=== PATIENT | male | born 1960 | race Caucasian/White ===

== ENCOUNTER 2024-09-15 15:40 | Inpatient (IN) | payer BC, SELFPAY ==
[2024-09-15] VITALS (9 sets, daily range): BP systolic 108–120; BP diastolic 74–77; PULSE 103–110; RESP 16–20; TEMP 36.6–38.4; O2SAT 94–96; BMI 27.6
--- NOTE | ~2024-09-15 | CT_ITS ---
EXAMINATION: CT abdomen pelvis w con DATE: 09/15/2024 16:41 INDICATION: Low abdominal pain. TECHNIQUE: Computed tomography (CT) of the abdomen and pelvis was performed with 100 mL Omnipaque 350 intravenous contrast. Automated exposure control and iterative reconstruction technique were employe d. The dose-length product was 563.92 mGy-cm. COMPARISON: None. FINDINGS: The visualized portions of the lung bases demonstrate mild atelectasis. There is mild bronc hiectasis bilaterally. No pleural effusion. The heart size is normal. There is a small pericardial ef fusion. Calcified right hilar lymph nodes are consistent with old granulomatous disease. There are cy sts in the liver measuring up to 16 mm. The spleen, gallbladder, pancreas, adrenal glands, and kidney s are normal. There is a small sliding hiatal hernia. There are scattered diverticula in the colon. T he appendix is ill-defined and dilated with surrounding fat stranding and free gas, consistent with r uptured appendicitis. There is a small volume of ascites in the right paracolic gutter and pelvis. Th ere are no pathologically enlarged lymph nodes. There is severe lumbar spondylosis. IMPRESSION: 1. Ruptured acute appendicitis. 2. Small volume of ascites. 3. Small pericardial effusion. Reviewed, dictated and finalized at location A. [facility]
[2024-09-15 16:26] LABS: Hematocrit 46.7 % (42.0-52.0); Mean Corpuscular HGB Conc 36.4 g/dl (32-36); Mean Corpuscular Hemoglobin 34.1 pg (26-34); Mean Corpuscular Volume 93.6 fl (80-100); Mean Platelet Volume 9.9 fl (7.4-10.4); Platelet Count Result 261 k/mm3 (150-375); Red Blood Count 4.99 M/mm3 (4.6-6.20); White Blood Count 13.1 K/mm3 (4.5-10.0)
[2024-09-15 16:37] LABS: Lactic Acid Reflex 2.7 mmol/L (0.7-2.0)
[2024-09-15 16:40] LABS: Albumin Level 4.7 g/dL (3.5-5.1)
--- NOTE | 2024-09-15 16:42 | ECG_ITS ---
Test Date: 2024-09-15 18:30:36 Measurements Intervals [place] Rate: 101 P: 27 UT: 150 QRS: 17 QRSD: 95 T: 13 QT: 311 QTc: 404 Interpretive Statements SINUS TACHYCARDIA POSSIBLE LEFT ATRIAL ENLARGEMENT INCOMPLETE RIGHT BUNDLE BRANCH BLOCK BORDERLINE T WAVE ABNORMALITY- ANT/INF LEADS BASELINE ARTIFACT- I, II, III, AVR, AVL, V1-V2 BORDERLINE ECG No previous ECG available for comparison Electronically Signed On 09-15-2024 19:16:48 WARDROBE COORDINATOR by Sridhar August D.O.
--- NOTE | 2024-09-15 16:43 | ED_ITS ---
HPI - Abdominal Pain General Chief Complaint: Abdominal Pain <Salud Perez APRN - Last Filed: 09/15/24 16:52> Stated Complaint: abd pain <Salud Perez APRN - Last Filed: 09/15/24 16:52> Time Seen by Provider: 09/15/24 16:25 <Salud Perez FLATLOCK SEWING MACHINE OPERATOR - Last Filed: 09/15/24 16:52> Focused HPI: patient is a 64-year-old male who presents to the ER with upper abdominal pain. He reports the pain has been going on for about 3 days. He also endorses diarrhea but does not feel as though he is passing much gas. The pain has worsened over the last 3 days. Patient denies fevers, urinary symptoms, or back pain. He does endorse frequent belching. Patient denies any recent sick contacts. GENERAL: Well-appearing, well-nourished, and in no acute distress. HEAD: Normocephalic, atraumatic. CHEST: Clear to auscultation. ?No respiratory distress. HEART: Tachycardia, regular rhythm. ? NEURO: ?Alert and oriented x3. Patient screened in triage and initial orders placed.? ?Additional care and di sposition to be based upon?diagnostic testing and treatment. <Salud Perez APRN - Last Filed: 09/15/24 16:52> Focused HPI: Patient is a 64-year-old male who presents to the ER with upper abdominal pain. He reports the pain has been going on for about 3 days. He also endorses diarrhea but does not feel as though he is passing much gas. The pain has worsened over the last 3 days. Patient denies fevers, urinary symptoms, or back pain. He does endorse frequent belching. Patient denies any recent sick contacts. GENERAL: Well-appearing, well-nourished, and in no acute distress. HEAD: Normocephalic, atraumatic. CHEST: Clear to auscultation. ?No respiratory distress. HEART: Tachycardia, regular rhythm. ? NEURO: ?Alert and oriented x3. Patient screened in triage and initial orders placed.? ?Additional care and disposition to be based upon?diagnostic testing and treatment. <Gilda Berg PA-C - Last Filed: 09/15/24 18:10> Source: patient <DEBBIE Christianson Last Filed: 09/15/24 18:10> Mode of arrival: ambulatory <DEBBIE Christianson Last Filed: 09/15/24 18:10> Limitations: no limitations <DEBBIE Christianson Last Filed: 09/15/24 18:10> History of Present Illness HPI narrative: Agree with above HPI. Reports pain is constant. Reported N/V today. Denies fevers. <DEBBIE Christianson Last Filed: 09/15/24 18:10> Related Data Allergies/Adverse Reactions: Allergies Allergy/AdvReac Type Severity Reaction Status Date / Time No Known Allergies Allergy Verified 09/15/24 15:50 <Salud Perez, FLATLOCK SEWING MACHINE OPERATOR - Last Filed: 09/15/24 16:52> Review of Systems Review of Systems: All systems reviewed & are unremarkable except as noted in HPI. <DEBBIE Christianson Last Filed: 09/15/24 18:10> All systems reviewed & are unremarkable except as noted in HPI and below <DEBBIE Christianson Last Filed: 09/15/24 18:10> Exam Narrative: GENERAL: Mildly ill appearing, well-nourished, non-toxic, in no acute distress. HEAD: Normocephalic, atraumatic. RESPIRATORY: Airway patent, respirations nonlabored. Clear to auscultation bilaterally, no rales, rhonchi, wheezing. CARDIOVASCULAR: Tachycardic with regular rhythm without murmurs, rubs, or gallops. ABDOMINAL: Abdomen is somewhat firm, diffusely tender in lower abdomen, worst in RLQ with some rebound tenderness noted. Normoactive BS. MUSCULOSKELETAL: Moves all extremities. No gross deformities. SKIN: Warm, dry, normal color. NEURO: A&O X3. Speech clear. No ataxic movements. PSYCHIATRIC: Appropriate mood and affect. Normal interaction. <DEBBIE Christianson Last Filed: 09/15/24 18:10> Course BAILER OPERATORS SUPERVISOR/PA Physician Supervision For this patient encounter, I reviewed the BAILER OPERATORS SUPERVISOR or PA documentation, treatment plan, and medical decision making and/or I had [id number] time with this patient. I performed all aspects of the MDM as documented. <Danyell Ramos MD - Last Filed: 09/15/24 19:19> Vital Signs Vital signs: Vital Signs Temperature 98.4 F 09/15/24 15:48 Pulse Rate 109 H 09/15/24 15:48 Respiratory Rate 20 09/15/24 15:48 Blood Pressure 108/77 09/15/24 15:48 Pulse Oximetry 96 09/15/24 15:48 Temperature 97.8 F 09/15/24 17:28 Pulse Rate 110 H 09/15/24 17:28 Respiratory Rate 18 09/15/24 17:28 Blood Pressure 111/76 09/15/24 17:28 Pulse Oximetry 96 09/15/24 17:28 <Salud Perez APRN - Last Filed: 09/15/24 16:52> Vital Signs Temperature 98.4 F 09/15/24 15:48 Pulse Rate 109 H 09/15/24 15:48 Respiratory Rate 20 09/15/24 15:48 Blood Pressure 108/77 09/15/24 15:48 Pulse Oximetry 96 09/15/24 15:48 Temperature 97.8 F 09/15/24 17:28 Pulse Rate 110 H 09/15/24 17:28 Respiratory Rate 18 09/15/24 17:28 Blood Pressure 111/76 09/15/24 17:28 Pulse Oximetry 96 09/15/24 17:28 <Gilda Berg PA-C - Last Filed: 09/15/24 18:10> Vital Signs Temperature 98.4 F 09/15/24 15:48 Pulse Rate 109 H 09/15/24 15:48 Respiratory Rate 20 09/15/24 15:48 Blood Pressure 108/77 09/15/24 15:48 Pulse Oximetry 96 09/15/24 15:48 Temperature 97.8 F 09/15/24 17:28 Pulse Rate 110 H 09/15/24 17:28 Respiratory Rate 18 09/15/24 17:28 Blood Pressure 111/76 09/15/24 17:28 Pulse Oximetry 96 09/15/24 17:28 <Danyell Ramos MD - Last Filed: 09/15/24 19:19> MDM - Abdominal Pain MDM Narrative Medical decision making narrative: Patient presented to ED with 3 day history with lower abdominal pain. Patient tachycardic upon arrival. Afebrile here. Abdomen exam is with moderate tenderness in lower abdomen, +rebound tenderness present. CBC with white blood cell count of 13.1. Neutrophil predominance. 4% bandemia. CMP with hyponatremia at 126, chloride low at 91. Fluids ongoing. Minimal anion gap of 13. Lactic acid elevated to 2.7. CT scan of abdomen /pelvis obtained and showing ruptured acute appendicitis. Small volume ascites. Will discuss with surgery. Blood cx obtained and zosyn started in the ED. Patient meeting sepsis criteria. 30 mL/kg fluid bolus ordered. Discussed case with Dr. Newman, accepted patient for admission under his service. Keep NPO. Patient in agreement with plan and need for admission. PRN pain and nausea medications ordered. <Gilda Berg PA-C - Last Filed: 09/15/24 18:10> Differential Diagnosis Differential diagnosis: Likely acute appendicitis, constipation, diverticulitis and pancreatitis <Danyell Ramos MD - Last Filed: 09/15/24 19:19> Medical Records Attestation: I reviewed the patient's medical records. <Gilda Berg PA-C - Last Filed: 09/15/24 18:10> Lab Data Attestation: I reviewed the patient's lab results. <Gilda Berg PA-C - Last Filed: 09/15/24 18:10> Result diagrams: 09/15/24 16:18 09/15/24 16:18 <Salud Perez APRN - Last Filed: 09/15/24 16:52> Labs: Lab Results 09/15/24 09/15/24 09/15/24 Range/Units 16:17 16:18 17:33 WBC 13.1 H (4.5-10.0) K/mm3 RBC 4.99 (4.6-6.20) M/mm3 Hgb 17.0 (14.0-18.0) g/dL Hct 46.7 (42.0-52.0) % MCV 93.6 (80-100) fl MCH 34.1 H (26-34) pg MCHC 36.4 H (32-36) g/dl RDW 12.0 (11.5-14.5) % Plt Count 261 (150-375) k/mm3 MPV 9.9 (7.4-10.4) fl Immature Gran % (Auto) Not Reportable Neut % (Auto) Not Reportable Lymph % (Auto) Not Reportable [place] % (Auto) Not Reportable Eos % (Auto) Not Reportable Baso % (Auto) Not Reportable Lymph # (Auto) Not Reportable [place] # (Auto) Not Reportable Eos # (Auto) Not Reportable Baso # (Auto) Not Reportable Abs Immat Gran (auto) Not Reportable Absolute Neuts (auto) Not Reportable Absolute Nucleated RBC Not Reportable Total Counted 100 Neutrophils % (Manual) 83 H (46-73) % Band Neutrophils % 4 (0-6) % Lymphocytes % (Manual) 6 L (18-44) % Monocytes % (Manual) 7 (3-9) % Eosinophils % (Manual) 0 (0-4) % Basophils % (Manual) 0 (0-1) % Nucleated RBC % Not Reportable Abs Neuts (Manual) 11.39 H (1.3-6.7) K/mm3 Abs Lymphs (Manual) 0.78 L (1.1-4.5) K/mm3 Abs Monocytes (Manual) 0.91 H (0.1-0.90) K/mm3 Absolute Eos (Manual) 0.00 L (0.02-0.50) K/mm3 Abs Basophils (Manual) 0.00 (0.0-0.1) K/mm3 Platelet Estimate Adequate (Adequate) Large Platelets Present Schistocytes None seen PT 16.1 H (11.1-14.7) Seconds INR 1.2 APTT 29.6 (22.3-36.8) Seconds Sodium 126 L (137-145) mmol/L Potassium 4.1 (3.4-5.0) mmol/L Chloride 91 L (98-107) mmol/L Carbon Dioxide 22 (22-30) mmol/L Anion Gap 13 H (4-12) mmol/L BUN 21 H (9-20) mg/dL Creatinine 1.10 (0.7-1.3) mg/dL Estim Creat Clear Calc 56 ml/min Estimated GFR > 60 (59 - ) Glucose 138 H (65-110) mg/dL Lactic Acid 2.7 H (0.7-2.0) mmol/L Calcium 10.3 H (8.4-10.2) mg/dL Total Bilirubin 2.4 H (0.2-1.3) mg/dL AST 23 (17-59) U/L ALT 18 (6-50) U/L Alkaline Phosphatase 69 (38-126) U/L Troponin I < 0.012 (0.000-0.034) ng/mL Total Protein 8.0 (6.3-8.2) g/dL Albumin 4.7 (3.5-5.1) g/dL Lipase 23 (23-300) U/L Urine Color Yellow (Yellow) Urine Appearance Clear (Clear) Urine pH 5.5 (5.0-9.0) Ur Specific [place] > 1.045 H (1.001-1.035) Urine Protein 2+ H (Negative) mg/dL Urine Glucose (UA) Negative (Negative) mg/dL Urine Ketones Negative (Negative) mg/dL Ur Blood (Man) 2+ H (Negative) Urine Nitrate Negative (Negative) Urine Bilirubin Negative (Negative) Urine Urobilinogen 1.0 (<2.0) mg/dL Add Ur Microanalysis Reviewed Leukocyte Esterase Rfl Negative (Negative) ROLF/UL Urine RBC 6-10 H (0-2) /hpf Urine WBC 0-5 (0-3) /hpf Ur Squamous Epith Cells None seen (Few) /hpf Urine Bacteria None seen /hpf Urine Casts 0-2 <Salud Perez, FLATLOCK SEWING MACHINE OPERATOR - Last Filed: 09/15/24 16:52> Lab Results 09/15/24 09/15/24 09/15/24 Range/Units 16:17 16:18 17:33 WBC 13.1 H (4.5-10.0) K/mm3 RBC 4.99 (4.6-6.20) M/mm3 Hgb 17.0 (14.0-18.0) g/dL Hct 46.7 (42.0-52.0) % MCV 93.6 (80-100) fl MCH 34.1 H (26-34) pg MCHC 36.4 H (32-36) g/dl RDW 12.0 (11.5-14.5) % Plt Count 261 (150-375) k/mm3 MPV 9.9 (7.4-10.4) fl Immature Gran % (Auto) Not Reportable Neut % (Auto) Not Reportable Lymph % (Auto) Not Reportable [place] % (Auto) Not Reportable Eos % (Auto) Not Reportable Baso % (Auto) Not Reportable Lymph # (Auto) Not Reportable [place] # (Auto) Not Reportable Eos # (Auto) Not Reportable Baso # (Auto) Not Reportable Abs Immat Gran (auto) Not Reportable Absolute Neuts (auto) Not Reportable Absolute Nucleated RBC Not Reportable Total Counted 100 Neutrophils % (Manual) 83 H (46-73) % Band Neutrophils % 4 (0-6) % Lymphocytes % (Manual) 6 L (18-44) % Monocytes % (Manual) 7 (3-9) % Eosinophils % (Manual) 0 (0-4) % Basophils % (Manual) 0 (0-1) % Nucleated RBC % Not Reportable Abs Neuts (Manual) 11.39 H (1.3-6.7) K/mm3 Abs Lymphs (Manual) 0.78 L (1.1-4.5) K/mm3 Abs Monocytes (Manual) 0.91 H (0.1-0.90) K/mm3 Absolute Eos (Manual) 0.00 L (0.02-0.50) K/mm3 Abs Basophils (Manual) 0.00 (0.0-0.1) K/mm3 Platelet Estimate Adequate (Adequate) Large Platelets Present Schistocytes None seen PT 16.1 H (11.1-14.7) Seconds INR 1.2 APTT 29.6 (22.3-36.8) Seconds Sodium 126 L (137-145) mmol/L Potassium 4.1 (3.4-5.0) mmol/L Chloride 91 L (98-107) mmol/L Carbon Dioxide 22 (22-30) mmol/L Anion Gap 13 H (4-12) mmol/L BUN 21 H (9-20) mg/dL Creatinine 1.10 (0.7-1.3) mg/dL Estim Creat Clear Calc 56 ml/min Estimated GFR > 60 (59 - ) Glucose 138 H (65-110) mg/dL Lactic Acid 2.7 H (0.7-2.0) mmol/L Calcium 10.3 H (8.4-10.2) mg/dL Total Bilirubin 2.4 H (0.2-1.3) mg/dL AST 23 (17-59) U/L ALT 18 (6-50) U/L Alkaline Phosphatase 69 (38-126) U/L Troponin I < 0.012 (0.000-0.034) ng/mL Total Protein 8.0 (6.3-8.2) g/dL Albumin 4.7 (3.5-5.1) g/dL Lipase 23 (23-300) U/L Urine Color Yellow (Yellow) Urine Appearance Clear (Clear) Urine pH 5.5 (5.0-9.0) Ur Specific [place] > 1.045 H (1.001-1.035) Urine Protein 2+ H (Negative) mg/dL Urine Glucose (UA) Negative (Negative) mg/dL Urine Ketones Negative (Negative) mg/dL Ur Blood (Man) 2+ H (Negative) Urine Nitrate Negative (Negative) Urine Bilirubin Negative (Negative) Urine Urobilinogen 1.0 (<2.0) mg/dL Add Ur Microanalysis Reviewed Leukocyte Esterase Rfl Negative (Negative) ROLF/UL Urine RBC 6-10 H (0-2) /hpf Urine WBC 0-5 (0-3) /hpf Ur Squamous Epith Cells None seen (Few) /hpf Urine Bacteria None seen /hpf Urine Casts 0-2 <Gilda Berg PA-C - Last Filed: 09/15/24 18:10> Lab Results 09/15/24 09/15/24 09/15/24 Range/Units 16:17 16:18 17:33 WBC 13.1 H (4.5-10.0) K/mm3 RBC 4.99 (4.6-6.20) M/mm3 Hgb 17.0 (14.0-18.0) g/dL Hct 46.7 (42.0-52.0) % MCV 93.6 (80-100) fl MCH 34.1 H (26-34) pg MCHC 36.4 H (32-36) g/dl RDW 12.0 (11.5-14.5) % Plt Count 261 (150-375) k/mm3 MPV 9.9 (7.4-10.4) fl Immature Gran % (Auto) Not Reportable Neut % (Auto) Not Reportable Lymph % (Auto) Not Reportable [place] % (Auto) Not Reportable Eos % (Auto) Not Reportable Baso % (Auto) Not Reportable Lymph # (Auto) Not Reportable [place] # (Auto) Not Reportable Eos # (Auto) Not Reportable Baso # (Auto) Not Reportable Abs Immat Gran (auto) Not Reportable Absolute Neuts (auto) Not Reportable Absolute Nucleated RBC Not Reportable Total Counted 100 Neutrophils % (Manual) 83 H (46-73) % Band Neutrophils % 4 (0-6) % Lymphocytes % (Manual) 6 L (18-44) % Monocytes % (Manual) 7 (3-9) % Eosinophils % (Manual) 0 (0-4) % Basophils % (Manual) 0 (0-1) % Nucleated RBC % Not Reportable Abs Neuts (Manual) 11.39 H (1.3-6.7) K/mm3 Abs Lymphs (Manual) 0.78 L (1.1-4.5) K/mm3 Abs Monocytes (Manual) 0.91 H (0.1-0.90) K/mm3 Absolute Eos (Manual) 0.00 L (0.02-0.50) K/mm3 Abs Basophils (Manual) 0.00 (0.0-0.1) K/mm3 Platelet Estimate Adequate (Adequate) Large Platelets Present Schistocytes None seen PT 16.1 H (11.1-14.7) Seconds INR 1.2 APTT 29.6 (22.3-36.8) Seconds Sodium 126 L (137-145) mmol/L Potassium 4.1 (3.4-5.0) mmol/L Chloride 91 L (98-107) mmol/L Carbon Dioxide 22 (22-30) mmol/L Anion Gap 13 H (4-12) mmol/L BUN 21 H (9-20) mg/dL Creatinine 1.10 (0.7-1.3) mg/dL Estim Creat Clear Calc 56 ml/min Estimated GFR > 60 (59 - ) Glucose 138 H (65-110) mg/dL Lactic Acid 2.7 H (0.7-2.0) mmol/L Calcium 10.3 H (8.4-10.2) mg/dL Total Bilirubin 2.4 H (0.2-1.3) mg/dL AST 23 (17-59) U/L ALT 18 (6-50) U/L Alkaline Phosphatase 69 (38-126) U/L Troponin I < 0.012 (0.000-0.034) ng/mL Total Protein 8.0 (6.3-8.2) g/dL Albumin 4.7 (3.5-5.1) g/dL Lipase 23 (23-300) U/L Urine Color Yellow (Yellow) Urine Appearance Clear (Clear) Urine pH 5.5 (5.0-9.0) Ur Specific [place] > 1.045 H (1.001-1.035) Urine Protein 2+ H (Negative) mg/dL Urine Glucose (UA) Negative (Negative) mg/dL Urine Ketones Negative (Negative) mg/dL Ur Blood (Man) 2+ H (Negative) Urine Nitrate Negative (Negative) Urine Bilirubin Negative (Negative) Urine Urobilinogen 1.0 (<2.0) mg/dL Add Ur Microanalysis Reviewed Leukocyte Esterase Rfl Negative (Negative) ROLF/UL Urine RBC 6-10 H (0-2) /hpf Urine WBC 0-5 (0-3) /hpf Ur Squamous Epith Cells None seen (Few) /hpf Urine Bacteria None seen /hpf Urine Casts 0-2 <Danyell Ramos MD - Last Filed: 09/15/24 19:19> Imaging Data Attestation: I personally reviewed and interpreted this imaging study as follows: <Gilda Berg PA-C - Last Filed: 09/15/24 18:10> Radiologist's impression: ITS Impressions Abdomen/Pelvis CT 09/15/24 16:44 IMPRESSION: 1. Ruptured acute appendicitis. 2. Small volume of ascites. 3. Small pericardial effusion. <Salud Perez APRN - Last Filed: 09/15/24 16:52> ITS Impressions Abdomen/Pelvis CT 09/15/24 16:44 IMPRESSION: 1. Ruptured acute appendicitis. 2. Small volume of ascites. 3. Small pericardial effusion. <Gilda Berg PA-C - Last Filed: 09/15/24 18:10> ITS Impressions Abdomen/Pelvis CT 09/15/24 16:44 IMPRESSION: 1. Ruptured acute appendicitis. 2. Small volume of ascites. 3. Small pericardial effusion. <Danyell Ramos MD - Last Filed: 09/15/24 19:19> Critical Care Time Critical Care Time Critical Care Time: Yes <Danyell Ramos MD - Last Filed: 09/15/24 19:19> Total Critical Care Time: 32 <Danyell Ramos MD - Last Filed: 09/15/24 19:19> Discharge Plan Discharge Clinical Impression: Acute appendicitis with rupture, Hyponatremia, Lactic acidosis Sepsis Qualifiers: Sepsis type: sepsis due to unspecified organism Sepsis acute organ dysfunction status: unspecified Qualified Code(s): A41.9 - Sepsis, unspecified organism Abdominal ascites Qualifiers: Ascites type: other type Qualified Code(s): R18.8 - Other ascites <Salud Perez APRN - Last Filed: 09/15/24 16:52> Patient Disposition: Still a Patient <Salud Perez APRN - Last Filed: 09/15/24 16:52> Condition: Serious <Salud Perez APRN - Last Filed: 09/15/24 16:52>
[2024-09-15 16:47] LABS: Alanine Aminotransferase 18 U/L (6-50); Alkaline Phosphatase 69 U/L (38-126); Anion Gap 13 mmol/L (4-12); Aspartate Amino Transferase 23 U/L (17-59); Bilirubin,Total 2.4 mg/dL (0.2-1.3); Blood Urea Nitrogen 21 mg/dL (9-20); Calcium 10.3 mg/dL (8.4-10.2); Carbon Dioxide 22 mmol/L (22-30); Chloride 91 mmol/L (98-107); Estimated CRCL calculation 56 ml/min; Estimated Glomerular Filt Rate > 60; Glucose 138 mg/dL (65-110); Potassium 4.1 mmol/L (3.4-5.0); Sodium 126 mmol/L (137-145)
[2024-09-15 16:55] LABS: Band Neutrophils Percent 4 % (0-6); Basophils Percent Manual 0 % (0-1); Eosinophils Percent Manual 0 % (0-4); Large Platelets Present; Lymphocytes Absolute Manual 0.78 K/mm3 (1.1-4.5); Lymphocytes Percent Manual 6 % (18-44); Monocytes Absolute Manual 0.91 K/mm3 (0.1-0.90); Monocytes Percent Manual 7 % (3-9); Neutrophils Absolute Manual 11.39 K/mm3 (1.3-6.7); Neutrophils Percent Manual 83 % (46-73); Platelet Estimate Adequate (Adequate); Total Cells Counted 100
[2024-09-15 16:56] LABS: Schistocytes None Seen
[2024-09-15 17:09] LABS: Lipase 23 U/L (23-300)
[2024-09-15 17:30] LABS: Troponin I < 0.012 ng/mL (0.000-0.034)
[2024-09-15 17:46] LABS: INR 1.2; Prothrombin Time 16.1 Seconds (11.1-14.7)
[2024-09-15 17:47] LABS: Partial Thromboplastin Time 29.6 Seconds (22.3-36.8)
[2024-09-15] MEDS: ONDANSETRON INJ 4 MG/2 ML VIAL IV PUSH (18:00)
[2024-09-15] MEDS: MORPHINE SULFATE (*CRX) 4 MG/ML INJ IV PUSH (18:01)
[2024-09-15] MEDS: PIPERACILLN/TAZ 3.375GM/NS50ML 3.375 GM/50 ML BAG IVPB ×2 (18:02→23:35)
[2024-09-15] MEDS: SODIUM CHLORIDE 0.9% IV 1,000 ML 999 ML IV CONT ×2 (18:10→18:11)
[2024-09-15 18:11] LABS: Add Urine Microscopic? YES; Appearance Urine Clear (Clear); Bacteria Urine None Seen /hpf; Bilirubin Urine Negative (Negative); Blood Urine 2+ (Negative); Color Urine Yellow (Yellow); Glucose Urine UA Negative (Negative); Ketones Urine Negative (Negative); Leukocyte Esterase Ur Negative LEU/UL (Negative); Need Manual Microscopic Reviewed; Nitrate Urine Negative (Negative); Non Pathogenic Casts 0-2; Protein Urine 2+ mg/dL (Negative); Specific Grav Ur > 1.045 (1.001-1.035); Squamous Epithelial Cell Urine None Seen /hpf (Few); WBC Urine 0-5 /hpf (0-3); pH Urine 5.5 (5.0-9.0)
[2024-09-15 19:23] LABS: Reflex Lactic Acid Yes or No Add Lactic
--- NOTE | 2024-09-15 19:54 | ADMGEN ---
This patient, Gonzalo Jordan, was admitted to [facility] Surg Room 321-. Patient/family oriented to hospital policies and general routines including ID bracelet, bed and alarms, visiting hours, pain management, procedures, bathroom and other care routines, personal items, smoking policy, room service/diet, and visiting hours. Information on how to activate the Rapid Response Team has been discussed. Patient/Family are encouraged to report perceived risks to care and to ask questions if they do not understand what they are told or what they should do.
[2024-09-15] MEDS: SODIUM CHLORIDE 0.9% IV 1,000 ML 100 ML IV CONT (20:20)
[2024-09-15] MEDS: HYDROmorphone HCL INJ (*CRX) 1 MG/ML SYR IV PUSH (20:21)
[2024-09-15] MEDS: SODIUM CHLORIDE 0.9% IV 400 ML 999 ML IV CONT (20:21)
[2024-09-15 21:06] LABS: Lactic Acid 1.1 mmol/L (0.7-2.0)
[2024-09-15] MEDS: ACETAMINOPHEN 650 MG SUPPOSITORY RECTAL (22:31)
[2024-09-16] VITALS (16 sets, daily range): BP systolic 103–126; BP diastolic 67–84; PULSE 78–120; RESP 18–24; TEMP 35.9–37.6; O2SAT 91–98
[2024-09-16] MEDS: HYDROmorphone HCL INJ (*CRX) 1 MG/ML SYR IV PUSH (04:01)
[2024-09-16] MEDS: SODIUM CHLORIDE 0.9% IV 1,000 ML 100 ML IV CONT (04:01)
[2024-09-16] MEDS: PIPERACILLN/TAZ 3.375GM/NS50ML 3.375 GM/50 ML BAG IVPB ×4 (05:37→23:25)
--- NOTE | 2024-09-16 08:13 | P.HP_ITS ---
H&P: HPI History of Present Illness Date/Time: 09/16/24 08:13 Chief Complaint: Lower abdominal pain Narrative: This is a 64-year-old man who presented to the emergency department last night with lower abdominal pain that started about 4 days prior. He states that he was having some vague abdominal pains 4 days ago but then 3 days ago pain became more localized to the lower abdomen. Pain was progressively worsening and he also experienced a couple episodes of vomiting. Pain was severe yesterday so he decided to come into the emergency department. He was not noticing any fevers at home but about 5 days ago he did experience night sweats. He has never had any symptoms like this in the past. He does have a family history of colon cancer in his mother but has had a colonoscopy about 14 years ago and also had Cologuard test recently which were negative. Review of Systems Review of Systems: All systems reviewed & are unremarkable except as noted in HPI and below Eyes: Eyes: Denies change in vision ENT: Denies hearing loss, Denies neck pain and Denies sore throat Cardiovascular: Cardiovascular: Denies chest pain and Denies dyspnea Respiratory: Respiratory: Denies cough, Denies dyspnea and Denies wheezing Gastrointestinal: Gastrointestinal: Reports as per HPI Genitourinary: Genitourinary: Denies hematuria and Denies dysuria Musculoskeletal: Musculoskeletal: Denies arthralgias, Denies joint swelling and Denies neck pain Allergic/Immunologic: Allergic/Immunologic: Denies wheezing [facility] Surgical History Surgical History (Updated 09/16/24 @ 08:16 by Varinder Newman DO) Hx of repair of left rotator cuff Family History Family History (Updated 09/15/24 @ 19:57 by Dalila oPlanco RN) Father Chronic obstructive pulmonary disease Mother Colon cancer Social History Social History Smoking status: Never smoker Alcohol intake: current Drinks per week: 6 Substance use: never Do You Feel Safe in your Home?: Yes Lack of Transportation: No Lack of Food: Never True Current Housing: I Have Housing Concerned About Future Housing: No Difficulty Paying Gas/Electric Bills: No Difficulty Paying for Meds: No Currently Unemployed: No Education: Associate Degree Difficulty w/ Childcare or Family Care: No Spiritual care concerns: No Meds Home Medications and Allergies Home Medications Medication Instructions Recorded Confirmed Type No Home Medications 09/15/24 09/15/24 History Allergies Allergy/AdvReac Type Severity Reaction Status Date / Time No Known Allergies Allergy Verified 09/15/24 15:50 Vital Signs Vital Signs - 24 hr 09/15/24 15:48 09/15/24 17:28 09/15/24 19:31 Temperature 98.4 F 97.8 F Pulse Rate 109 H 110 H 103 H Respiratory Rate 20 18 16 Blood Pressure 108/77 111/76 120/74 Pulse Oximetry 96 96 96 Oxygen Delivery 09/15/24 21:30 09/15/24 22:29 09/15/24 22:31 Temperature 99.7 F H 100.4 F H 100.4 F H Pulse Rate Respiratory Rate Blood Pressure Pulse Oximetry Oxygen Delivery 09/15/24 20:05 09/15/24 20:45 09/15/24 23:31 Temperature 101.2 F H 100.4 F H 99.7 F H Pulse Rate 105 H Respiratory Rate 16 Blood Pressure 118/75 Pulse Oximetry 94 Oxygen Delivery 09/15/24 20:00 09/16/24 00:00 09/16/24 04:00 Temperature 99.6 F Pulse Rate 94 Respiratory Rate Blood Pressure Pulse Oximetry Oxygen Delivery Room Air 09/16/24 04:00 09/16/24 05:00 Temperature 97.9 F Pulse Rate 98 97 Respiratory Rate 20 Blood Pressure 106/72 Pulse Oximetry 93 Oxygen Delivery Exam Const: General: alert; No acute distress Orientation/consciousness: patient oriented x3 Limitations: no limitations HENMT: Head: normocephalic and atraumatic Ears: hearing grossly normal bilaterally Face/Nose/Sinus: Normal external nose present and Normal nares present Mouth: Yes Normal oral and palatal mucosa present and Yes moist mucous membranes Eyes: General: appearance normal, both eyes and all related structures Conjunctivae: conjunctivae normal Sclera: sclerae normal Pupils: Equal, round and reactive pupils present EOM: EOMs intact bilaterally Neck: Neck: normal visual inspection, full ROM, no lymphadenopathy, supple and no JVD Lymphatic: no lymphadenopathy noted Chest: Chest palpation & inspection: normal inspection of the chest Resp: Effort & Inspection: normal respiratory effort and able to speak in complete sentences Auscultation: clear to auscultation bilaterally Percussion: percussion normal Cardio: Jugular venous distension: no JVD Rate: regular rate Rhythm: regular rhythm Heart sounds: S1 normal heart sound present and S2 normal heart sound present Peripheral pulses: Peripheral pulses 2+ throughout GI: Inspection: normal to inspection and non-distended GI Palp: Yes Tenderness to palpation present (GI) (Tender diffusely but more significant in right lower quadrant), Yes Guarding due to palpation present (GI) (Right lower quadrant) and No Rebound tenderness present Auscultation: normal bowel sounds : General: Yes no CVA tenderness Back/Spine/Pelvis: Back: no CVA tenderness Skin: General skin exam: normal color and dry skin Neuro: General: patient oriented x3, gait normal, moves all extremities, no focal motor deficits and CN's II-XI intact bilaterally Cranial nerves: Yes Equal, round and reactive pupils present Speech: normal speech Extrem: General: normal to inspection and capillary refill normal H&P: Results Labs Labs: Short CBC 09/15/24 Range/Units 16:18 WBC 13.1 H (4.5-10.0) K/mm3 Hgb 17.0 (14.0-18.0) g/dL Hct 46.7 (42.0-52.0) % Plt Count 261 (150-375) k/mm3 BMP 09/15/24 16:18 Sodium 126 L Potassium 4.1 Chloride 91 L Carbon Dioxide 22 BUN 21 H Creatinine 1.10 Glucose 138 H Calcium 10.3 H Cardiac Enzymes 09/15/24 Range/Units 16:17 Troponin I < 0.012 (0.000-0.034) ng/mL Liver Function 09/15/24 Range/Units 16:18 Total Bilirubin 2.4 H (0.2-1.3) mg/dL AST 23 (17-59) U/L ALT 18 (6-50) U/L Alkaline Phosphatase 69 (38-126) U/L Albumin 4.7 (3.5-5.1) g/dL Urine 09/15/24 Range/Units 17:33 Urine Color Yellow (Yellow) Urine Appearance Clear (Clear) Urine pH 5.5 (5.0-9.0) Ur Specific [place] > 1.045 H (1.001-1.035) Urine Protein 2+ H (Negative) mg/dL Urine Glucose (UA) Negative (Negative) mg/dL Imaging CT scan - abdomen: Radiologist's impression: ITS Impressions Abdomen/Pelvis CT 09/15/24 16:44 IMPRESSION: 1. Ruptured acute appendicitis. 2. Small volume of ascites. 3. Small pericardial effusion. Assessment and Plan Assessment and plan (1) Acute appendicitis with rupture: Code(s): K35.32 - Acute appendicitis with perforation, localized peritonitis, and gangrene, without abscess Status: Acute Assessment and Plan: * I reviewed the CT and discussed the findings with the patient. He has evidence of perforated appendicitis and has been started on broad-spectrum IV antibiotics. He was febrile on presentation yesterday but fevers have now resolved since starting antibiotics. I discussed that his appendix already appears ruptured and continued medical treatment with antibiotics is a reasonable option for treatment. I discussed that surgery is also an option, but there are still chances of continued intra-abdominal infection despite surgery. Patient states that he is in severe pain and cannot even get out of bed without experiencing worsening pain and would therefore like to proceed with surgery. I have recommended laparoscopic appendectomy, possible open. I discussed risks of more difficult surgery when the appendix is already ruptur ed and it has been several days. I also discussed chances of conversion to open surgery and other continued risks of infection even postoperatively. Patient voiced his understanding. Will plan for surgery today. Will repeat labs this morning and continue IV fluid resuscitation. (2) Sepsis: Qualifiers: Sepsis acute organ dysfunction status: unspecified Sepsis type: sepsis due to unspecified organism Qualified Code(s): A41.9 - Sepsis, unspecified organism Code(s): A41.9 - Sepsis, unspecified organism Status: Acute (3) Hyponatremia: Code(s): E87.1 - Hypo-osmolality and hyponatremia Status: Acute Assessment and Plan: * Low-sodium and ED likely related to current infection and volume status. Will repeat labs this morning.
[2024-09-16] MEDS: IBUPROFEN IV 800 MG/200 ML 800 MG/200 ML BAG 400 MG IVPB (08:21)
[2024-09-16 08:45] LABS: Hematocrit 39.3 % (42.0-52.0); Hemoglobin 14.1 g/dL (14.0-18.0); Mean Corpuscular HGB Conc 35.9 g/dl (32-36); Mean Corpuscular Hemoglobin 34.1 pg (26-34); Mean Corpuscular Volume 94.9 fl (80-100); Mean Platelet Volume 9.7 fl (7.4-10.4); Platelet Count Result 159 k/mm3 (150-375); Red Blood Count 4.14 M/mm3 (4.6-6.20); White Blood Count 10.3 K/mm3 (4.5-10.0)
[2024-09-16 08:57] LABS: Alanine Aminotransferase 15 U/L (6-50); Albumin Level 3.4 g/dL (3.5-5.1); Alkaline Phosphatase 53 U/L (38-126); Anion Gap 7 mmol/L (4-12); Aspartate Amino Transferase 20 U/L (17-59); Blood Urea Nitrogen 21 mg/dL (9-20); Calcium 9.3 mg/dL (8.4-10.2); Carbon Dioxide 22 mmol/L (22-30); Chloride 101 mmol/L (98-107); Estimated CRCL calculation 68 ml/min; Estimated Glomerular Filt Rate > 60; Glucose 97 mg/dL (65-110); Sodium 130 mmol/L (137-145)
--- NOTE | 2024-09-16 13:16 | PC.NURSE ---
To OR per [ ], IV [ ]. Report given to [LÁZARO].
--- NOTE | 2024-09-16 14:05 | WPDHPUPDATE1 ---
History and Physical Update Update Date/Time: 09/16/24 14:05 History and Physical has been reviewed, including an updated exam of the patient. There are NO changes in the patient's condition. Risks, benefits, and alternatives have been discussed and questions answered. Patient agrees to proceed with procedure.
--- NOTE | 2024-09-16 14:10 | P.PNAN_ITS ---
Anes - Initial Pre Proc Eval Procedure: Operation Date: 09/16/24 15:30 Proposed Procedures p Laparoscopic Appendectomy, Possible Open - Varinder Newman DO Date/Time: 09/16/24 14:10 Surgeon: Varinder Newman DO Pre Op Diagnosis: Ruptured Acute Appendicitis Patient Data Age: 64 Gender: M Height: 1.7 m Weight: 79.9 kg Last Vital Signs Temp 97.9 F 09/16/24 05:00 Pulse 87 09/16/24 12:00 Resp 20 09/16/24 05:00 BP 106/72 09/16/24 05:00 Pulse Ox 93 09/16/24 05:00 O2 Del Method Room Air 09/15/24 20:00 Allergies Allergy/AdvReac Type Severity Reaction Status Date / Time No Known Allergies Allergy Verified 09/15/24 15:50 Home Medications Medication Instructions Recorded Confirmed Type No Home Medications 09/15/24 09/15/24 History Laboratory Tests 09/15/24 09/15/24 09/15/24 16:17 16:18 17:33 WBC 13.1 H K/mm3 (4.5-10.0) RBC 4.99 M/mm3 (4.6-6.20) Hgb 17.0 g/dL (14.0-18.0) Hct 46.7 % (42.0-52.0) MCV 93.6 fl (80-100) MCH 34.1 H pg (26-34) MCHC 36.4 H g/dl (32-36) RDW 12.0 % (11.5-14.5) Plt Count 261 k/mm3 (150-375) MPV 9.9 fl (7.4-10.4) Immature Gran % (Auto) Not Reportable Neut % (Auto) Not Reportable Lymph % (Auto) Not Reportable [place] % (Auto) Not Reportable Eos % (Auto) Not Reportable Baso % (Auto) Not Reportable Lymph # (Auto) Not Reportable [place] # (Auto) Not Reportable Eos # (Auto) Not Reportable Baso # (Auto) Not Reportable Abs Immat Gran (auto) Not Reportable Absolute Neuts (auto) Not Reportable Absolute Nucleated RBC Not Reportable Total Counted 100 Neutrophils % (Manual) 83 H % (46-73) Band Neutrophils % 4 % (0-6) Lymphocytes % (Manual) 6 L % (18-44) Monocytes % (Manual) 7 % (3-9) Eosinophils % (Manual) 0 % (0-4) Basophils % (Manual) 0 % (0-1) Nucleated RBC % Not Reportable Abs Neuts (Manual) 11.39 H K/mm3 (1.3-6.7) Abs Lymphs (Manual) 0.78 L K/mm3 (1.1-4.5) Abs Monocytes (Manual) 0.91 H K/mm3 (0.1-0.90) Absolute Eos (Manual) 0.00 L K/mm3 (0.02-0.50) Abs Basophils (Manual) 0.00 K/mm3 (0.0-0.1) Platelet Estimate Adequate (Adequate) Large Platelets Present Schistocytes None seen PT 16.1 H Seconds (11.1-14.7) INR 1.2 APTT 29.6 Seconds (22.3-36.8) Sodium 126 L mmol/L (137-145) Potassium 4.1 mmol/L (3.4-5.0) Chloride 91 L mmol/L (98-107) Carbon Dioxide 22 mmol/L (22-30) Anion Gap 13 H mmol/L (4-12) BUN 21 H mg/dL (9-20) Creatinine 1.10 mg/dL (0.7-1.3) Estim Creat Clear Calc 56 ml/min Estimated GFR > 60 (59 - ) Glucose 138 H mg/dL (65-110) Lactic Acid 2.7 H mmol/L (0.7-2.0) Calcium 10.3 H mg/dL (8.4-10.2) Total Bilirubin 2.4 H mg/dL (0.2-1.3) AST 23 U/L (17-59) ALT 18 U/L (6-50) Alkaline Phosphatase 69 U/L (38-126) Troponin I < 0.012 ng/mL (0.000-0.034) Total Protein 8.0 g/dL (6.3-8.2) Albumin 4.7 g/dL (3.5-5.1) Lipase 23 U/L (23-300) Urine Color Yellow (Yellow) Urine Appearance Clear (Clear) Urine pH 5.5 (5.0-9.0) Ur Specific [place] > 1.045 H (1.001-1.035) Urine Protein 2+ H mg/dL (Negative) Urine Glucose (UA) Negative mg/dL (Negative) Urine Ketones Negative mg/dL (Negative) Ur Blood (Man) 2+ H (Negative) Urine Nitrate Negative (Negative) Urine Bilirubin Negative (Negative) Urine Urobilinogen 1.0 mg/dL (<2.0) Add Ur Microanalysis Reviewed Leukocyte Esterase Rfl Negative ROLF/UL (Negative) Urine RBC 6-10 H /hpf (0-2) Urine WBC 0-5 /hpf (0-3) Ur Squamous Epith Cells None seen /hpf (Few) Urine Bacteria None seen /hpf Urine Casts 0-2 Blood Type Antibody Screen 09/15/24 09/16/24 20:48 08:39 WBC 10.3 H K/mm3 (4.5-10.0) RBC 4.14 L M/mm3 (4.6-6.20) Hgb 14.1 g/dL (14.0-18.0) Hct 39.3 L % (42.0-52.0) MCV 94.9 fl (80-100) MCH 34.1 H pg (26-34) MCHC 35.9 g/dl (32-36) RDW 12.0 % (11.5-14.5) Plt Count 159 k/mm3 (150-375) MPV 9.7 fl (7.4-10.4) Immature Gran % (Auto) Neut % (Auto) Lymph % (Auto) [place] % (Auto) Eos % (Auto) Baso % (Auto) Lymph # (Auto) [place] # (Auto) Eos # (Auto) Baso # (Auto) Abs Immat Gran (auto) Absolute Neuts (auto) Absolute Nucleated RBC Total Counted Neutrophils % (Manual) Band Neutrophils % Lymphocytes % (Manual) Monocytes % (Manual) Eosinophils % (Manual) Basophils % (Manual) Nucleated RBC % Abs Neuts (Manual) Abs Lymphs (Manual) Abs Monocytes (Manual) Absolute Eos (Manual) Abs Basophils (Manual) Platelet Estimate Large Platelets Schistocytes PT INR APTT Sodium 130 L mmol/L (137-145) Potassium 4.0 mmol/L (3.4-5.0) Chloride 101 mmol/L (98-107) Carbon Dioxide 22 mmol/L (22-30) Anion Gap 7 mmol/L (4-12) BUN 21 H mg/dL (9-20) Creatinine 0.90 mg/dL (0.7-1.3) Estim Creat Clear Calc 68 ml/min Estimated GFR > 60 (59 - ) Glucose 97 mg/dL (65-110) Lactic Acid 1.1 mmol/L (0.7-2.0) Calcium 9.3 mg/dL (8.4-10.2) Total Bilirubin 2.0 H mg/dL (0.2-1.3) AST 20 U/L (17-59) ALT 15 U/L (6-50) Alkaline Phosphatase 53 U/L (38-126) Troponin I Total Protein 7.0 g/dL (6.3-8.2) Albumin 3.4 L g/dL (3.5-5.1) Lipase Urine Color Urine Appearance Urine pH Ur Specific [place] Urine Protein Urine Glucose (UA) Urine Ketones Ur Blood (Man) Urine Nitrate Urine Bilirubin Urine Urobilinogen Add Ur Microanalysis Leukocyte Esterase Rfl Urine RBC Urine WBC Ur Squamous Epith Cells Urine Bacteria Urine Casts Blood Type A Positive Antibody Screen Negative Patient hx anesthesia problems: none Family hx anesthesia problems: none Results Review: All pre-operative results and documents have been reviewed as part of the pre-operative evaluation. [facility] Surgical History Surgical History Hx of repair of left rotator cuff Family History Family History Father Chronic obstructive pulmonary disease Mother Colon cancer Social History Social History Smoking status: Never smoker Alcohol intake: current Drinks per week: 6 Substance use: never Do You Feel Safe in your Home?: Yes Lack of Transportation: No Lack of Food: Never True Current Housing: I Have Housing Concerned About Future Housing: No Difficulty Paying Gas/Electric Bills: No Difficulty Paying for Meds: No Currently Unemployed: No Education: Associate Degree Difficulty w/ Childcare or Family Care: No Spiritual care concerns: No Anes - Eval Final PreProcedure Day of Procedure 09/16/24 14:10 Patient weight: overweight Heart: regular rate and rhythm Lungs: clear to auscultation Airway: Mallampati scale and special considerations (Upper R partial has been removed. ) Neurological: alert and oriented Last oral intake: >/= 8 hours ASA classification: II Emergent: no Anesthetic plan: proceed Anesthesia type and monitoring: general ETT and standard monitoring Results Review: All pre-operative results and documents have been reviewed as part of the pre- operative evaluation. Restless leg syndrome. [place] [id number] steps most days, no cp or sob. Informed Consent: The patient's anesthetic plan and its attendant risks and benefits were discussed with the patient/family/POA. Questions were solicited and answers provided to the satisfaction of the patient/family/POA.
[2024-09-16] MEDS: BUPIVACAINE/EPINEPHRINE 0.5% 50 ML VIAL 30 ML INFILTRATE (15:35)
--- NOTE | 2024-09-16 15:41 | P.OP_ITS ---
Procedure Note - Detailed Date of Procedure 09/16/24 Pre-op Diagnosis Ruptured Acute Appendicitis Post-op Diagnosis Same (Perforated appendicitis with abscess) Procedure Performed 1. Laparoscopic appendectomy 2. Laparoscopic drainage of intraabdominal abscess Surgeon Varinder Newman, DO Anesthesia General and Local (0.5% bupivicaine with epinephrine) Indications This is a 64-year-old man who presented to the emergency room yesterday with right lower quadrant abdominal pain. His pain had started about 4 days prior and had continued to progress. He was also having fevers and tachycardia. He was started on broad-spectrum IV antibiotics and admitted for further treatment. Discussions were made with the patient about treatment options and decision was made to proceed with laparoscopic appendectomy, possible open. Findings Laparoscopic appendectomy was performed. The patient had multiple loculated abscesses within the pelvis and right lower quadrant. These abscesses were drained laparoscopically and eventually after taking down some of the periap pendiceal adhesions I was able to identify the appendix. This appeared to be a necrotic appendix with stool draining from the area of perforation. Almost the entire appendix appeared necrotic, but at the base of the appendix there did appear to be a healthy viable base. The cecum and surrounding bowel had reactive inflammation but otherwise appeared healthy. The appendix was removed and sent to the lab for pathology. I then irrigated the abdomen with 2 L of sterile saline. Decision was also made to place a 19 round William drain within the pelvis and right lower quadrant. Description of Procedure Procedure as well as risks, benefits, and alternatives were explained to the patient. The patient agreed to proceed. Written consent was obtained and placed in chart prior to procedure. The patient was brought back to surgical suite. He was placed supine on operating table. Time-out was done to confirm the patient and procedure. The patient was then intubated by the Anesthesia Department. His abdomen was prepped and draped in sterile fashion using chlorhexidine prep. A 5 mm incision was made just to the left of the patient's umbilicus and a 5 mm Optiview trocar was advanced through the abdominal layers under direct visualization. Once inside the peritoneal cavity, carbon dioxide insufflation was used to create a pneumoperitoneum. The camera was inserted and the abdomen was inspected. No immediate abnormalities were identified. The patient was then placed in slight Trendelenburg position and rotated to the left. A 5 mm incision was made in the suprapubic region in midline and a 5 mm trocar was inserted under direct visualization. A 12 mm incision was made in the left lower quadrant and a 12 mm trocar was inserted under direct visualization. The right lower quadrant was carefully inspected. There were multiple periappendiceal adhesions involving loops of small bowel and the omentum. Multiple loculated abscesses were identified as these adhesions were taken down. There was also some evidence of purulence fluid in the pelvis between the sigmoid, rectum, and pelvic sidewalls. After taking down all the loculations and draining all the abscesses, the cecum was identified and then this was traced back to the appendix. The appendix was identified and grasped at the mesoappendix and lifted anteriorly. Careful blunt dissection was carried out at the base of the appendix through the mesoappendix using a [place] grasper. An Endo-JOSE LUIS 45 mm blue load stapler was then advanced across the base of the appendix and clamped and fired. A white reload was then clamped across the mesoappendix and fired. This freed up our appendix completely. It was then placed in an EndoCatch bag and removed through the left lower quadrant port. The staple lines were then inspected. Hemostasis appeared adequate and the staple lines appeared secure. The area was then irrigated with sterile saline. The pelvis was then carefully inspected and irrigated with sterile saline as well and the remainder of the abdomen was carefully inspected. A 19 round William drain was placed through the suprapubic port and advanced along the right lower quadrant and pelvis. The drain was secured in place using a 3-0 nylon drain stitch. The patient was then flattened out in bed. One final inspection was made around the abdominal cavity and no other abnormalities were seen. The left lower quadrant port was removed and a Maycol-Melvi cone was used to approximate the fascia with an 0 Vicryl simple interrupted suture. The remaining ports were then removed under direct visualization. The camera was removed and the pneumoperitoneum was released. 0.5% bupivacaine with epinephrine was infiltrated locally around each of the incisions. The skin of the incisions was then approximated using 4-0 Monocryl subcuticular suture and Exofin glue was applied on top. The patient was then awakened from anesthesia, extubated, and transferred to Recovery. Estimated Blood Loss 10 Urine Output 300 Pathology Yes (Appendix) Complications No immediate complications Condition Stable Disposition Floor [facility] Billing Surgery - Charge Forward: Surgery Billing
[2024-09-16] MEDS: LACTATED RINGERS 1,000 ML 30 ML IV CONT (15:43)
--- NOTE | 2024-09-16 16:55 | PC.NURSE ---
Returned from OR per [ ]. Report received from [ yusra].
[2024-09-16] MEDS: SODIUM CHLORIDE 0.9% IV 1,000 ML 150 ML IV CONT (17:26)
[2024-09-16] MEDS: IBUPROFEN 600 MG TABLET PO (17:35)
[2024-09-17] VITALS (8 sets, daily range): BP systolic 100–126; BP diastolic 64–80; PULSE 73–79; RESP 14–18; TEMP 36.3–36.8; O2SAT 91–97
[2024-09-17] MEDS: PIPERACILLN/TAZ 3.375GM/NS50ML 3.375 GM/50 ML BAG IVPB ×3 (05:34→18:11)
[2024-09-17] MEDS: SODIUM CHLORIDE 0.9% IV 1,000 ML 150 ML IV CONT (05:34)
[2024-09-17 06:25] LABS: Hemoglobin 12.1 g/dL (14.0-18.0); Mean Corpuscular HGB Conc 34.6 g/dl (32-36); Mean Corpuscular Hemoglobin 33.6 pg (26-34); Mean Corpuscular Volume 97.2 fl (80-100); Mean Platelet Volume 10.4 fl (7.4-10.4); Platelet Count Result 168 k/mm3 (150-375); Red Cell Distribution Width 12.2 % (11.5-14.5); White Blood Count 11.2 K/mm3 (4.5-10.0)
[2024-09-17 06:45] LABS: Anion Gap 6 mmol/L (4-12); Blood Urea Nitrogen 21 mg/dL (9-20); Calcium 8.8 mg/dL (8.4-10.2); Carbon Dioxide 20 mmol/L (22-30); Chloride 105 mmol/L (98-107); Estimated CRCL calculation 68 ml/min; Estimated Glomerular Filt Rate > 60; Glucose 100 mg/dL (65-110); Potassium 3.6 mmol/L (3.4-5.0); Sodium 131 mmol/L (137-145)
[2024-09-17] MEDS: ENOXAPARIN 40 MG/0.4 ML SYRINGE SUB-Q (09:29)
--- NOTE | 2024-09-17 13:23 | P.PNGS_ITS ---
Progress Note: A&P Assessment and Plan (1) Acute appendicitis with rupture: Code(s): K35.32 - Acute appendicitis with perforation, localized peritonitis, and gangrene, without abscess Status: Acute Assessment and Plan: * Continue Zosyn. Stop IV fluids and advance diet. Monitor drain output. * Possibly home in 1-2 days (2) Sepsis: Qualifiers: Sepsis acute organ dysfunction status: unspecified Sepsis type: sepsis due to unspecified organism Qualified Code(s): A41.9 - Sepsis, unspecified organism Code(s): A41.9 - Sepsis, unspecified organism Status: Resolved (3) Hyponatremia: Code(s): E87.1 - Hypo-osmolality and hyponatremia Status: Acute Assessment and Plan: * Improved with fluid resuscitation Subjective Subjective Date/Time Seen: 09/17/24 13:23 Interval history: Afebrile, tolerating clears, having some diarrhea, no bloating/nausea. Pain controlled. Exam GI: Inspection: non-distended, incision (intact with glue) and other (IAN serosanguinous) GI Palp: Yes Soft to palpation, Yes Tenderness to palpation present (GI) (RLQ), No Guarding due to palpation present (GI) and No Rebound tenderness present Objective Data Vital Signs Vital Signs: Vital Signs - 24 hr 09/16/24 15:43 09/16/24 16:40 09/16/24 15:55 Temperature 97.6 F 97.9 F Pulse Rate 120 H 101 H 107 H Respiratory Rate 24 H 18 20 Blood Pressure 117/84 110/71 120/79 Pulse Oximetry 98 94 96 Oxygen Delivery Simple Face Mask Room Air Simple Face Mask Oxygen Flow Rate 6 6 09/16/24 16:10 09/16/24 16:25 09/16/24 16:50 Temperature 96.7 F L Pulse Rate 106 H 102 H 78 Respiratory Rate 20 18 18 Blood Pressure 116/84 126/80 108/68 Pulse Oximetry 97 97 91 Oxygen Delivery Simple Face Mask Room Air Oxygen Flow Rate 6 09/16/24 17:05 09/16/24 17:35 09/16/24 18:13 Temperature 96.8 F L 97.0 F L 97.0 F L Pulse Rate 96 93 96 Respiratory Rate 18 18 18 Blood Pressure 105/68 103/67 106/68 Pulse Oximetry 93 94 94 Oxygen Delivery Oxygen Flow Rate 09/16/24 21:57 09/16/24 20:00 09/16/24 20:00 Temperature 98.1 F Pulse Rate 82 86 Respiratory Rate 22 H Blood Pressure 122/70 Pulse Oximetry 95 Oxygen Delivery Room Air Oxygen Flow Rate 09/17/24 00:29 09/17/24 00:00 09/17/24 04:00 Temperature 97.9 F Pulse Rate 73 75 74 Respiratory Rate 14 Blood Pressure 126/80 Pulse Oximetry 91 Oxygen Delivery Oxygen Flow Rate 09/17/24 05:34 09/17/24 08:03 09/17/24 10:35 Temperature 97.3 F L 98.1 F Pulse Rate 73 75 79 Respiratory Rate 14 18 Blood Pressure 103/64 105/69 Pulse Oximetry 95 97 Oxygen Delivery Oxygen Flow Rate Intake/Output Intake/Output: Intake & Output 09/14/24 09/15/24 09/16/24 09/17/24 23:59 23:59 23:59 23:59 Intake Total 2049 4235.3 2120 Output Total 550 205 Balance 2049 3685.3 1915 Meds/Results Medications: Active Medications Generic Name Dose Route Start Last Admin Trade Name Freq PRN Reason Stop Dose Admin Hydrocodone Bitart/Acetaminophen 1 tab 09/16/24 16:50 Hydrocodone/Acetaminophen (*Crx) 5-325 Mg Tablet PO Q4H PRN Pain Rated 4-6 Hydrocodone Bitart/Acetaminophen 1 tab 09/16/24 16:50 Hydrocodone/Acetaminophen (*Crx) 10-325 Mg Tablet PO Q4H PRN Pain Rated 7-10 Dextrose 12.5 gm 09/15/24 17:49 Dextrose 50% 25 Gm/50 Ml Syringe IV PUSH PRN PRN Hypoglycemia Protocol Enoxaparin Sodium 40 mg 09/17/24 09:00 09/17/24 09:29 Enoxaparin 40 Mg/0.4 Ml Syringe SUB-Q 40 mg DAILY REJI Administration Glucagon 1 mg 09/15/24 17:49 Glucagon For Inj 1 Mg Vial IM PRN PRN Hypoglycemia Protocol Glucose 15 gm 09/15/24 17:49 Glucose Oral Gel 15 Gm Of Glucse In 37.5 Gm Tube PO PRN PRN Hypoglycemia Protocol Hydromorphone HCl 1 mg 09/16/24 16:50 Hydromorphone Hcl Inj (*Crx) 1 Mg/Ml Syr IV PUSH Q2H PRN Breakthrough Pain Rated 7-10 or NPO Hydromorphone HCl 0.5 mg 09/16/24 16:50 Hydromorphone Hcl Inj (*Crx) 1 Mg/Ml Syr IV PUSH Q2H PRN Breakthrough Pain Rated 4-6 or NPO Piperacillin/Tazobactam/Dextrose 3.375 gm in 50 mls @ 100 mls/hr 09/16/24 00:00 09/17/24 12:25 Zosyn 3.375 Gm/Ns 50 Ml IVPB 100 mls/hr Q6H REJI Administration Dextrose 1,000 mls @ 100 mls/hr 09/15/24 17:49 Dextrose 5% 1,000 Ml IVPB PRN PRN Hypoglycemia Protocol Ibuprofen 600 mg 09/16/24 16:50 09/16/24 17:35 Ibuprofen 600 Mg Tablet PO 600 mg Q6H PRN Administration Mild Pain (1-3) or Fever Naloxone HCl 0.1 mg 09/16/24 16:50 Naloxone Hcl 0.4 Mg/Ml Vial IV PUSH Q2M PRN Opiate Reversal Ondansetron HCl 4 mg 09/15/24 17:49 Ondansetron Inj 4 Mg/2 Ml Vial IV PUSH Q4H PRN Nausea Radiology Results: ITS Impressions Abdomen/Pelvis CT 09/15/24 16:44 IMPRESSION: 1. Ruptured acute appendicitis. 2. Small volume of ascites. 3. Small pericardial effusion. Labs Labs: Laboratory Results - last 24 hr 09/17/24 06:04 WBC 11.2 H RBC 3.60 L Hgb 12.1 L Hct 35.0 L MCV 97.2 MCH 33.6 MCHC 34.6 RDW 12.2 Plt Count 168 MPV 10.4 Sodium 131 L Potassium 3.6 Chloride 105 Carbon Dioxide 20 L Anion Gap 6 BUN 21 H Creatinine 0.90 Estim Creat Clear Calc 68 Estimated GFR > 60 Glucose 100 Calcium 8.8
[2024-09-18] MEDS: PIPERACILLN/TAZ 3.375GM/NS50ML 3.375 GM/50 ML BAG IVPB ×3 (00:15→11:35)
[2024-09-18 06:00] VITALS: BP 121/74; PULSE 78; RESP 18; TEMP 37; O2SAT 96
[2024-09-18 06:42] LABS: Hematocrit 35.9 % (42.0-52.0); Hemoglobin 12.6 g/dL (14.0-18.0); Mean Corpuscular HGB Conc 35.1 g/dl (32-36); Mean Corpuscular Hemoglobin 33.6 pg (26-34); Mean Corpuscular Volume 95.7 fl (80-100); Mean Platelet Volume 9.7 fl (7.4-10.4); Platelet Count Result 216 k/mm3 (150-375); Red Blood Count 3.75 M/mm3 (4.6-6.20); Red Cell Distribution Width 12.3 % (11.5-14.5); White Blood Count 14.1 K/mm3 (4.5-10.0)
[2024-09-18 06:52] LABS: Anion Gap 5 mmol/L (4-12); Blood Urea Nitrogen 19 mg/dL (9-20); Calcium 8.9 mg/dL (8.4-10.2); Carbon Dioxide 21 mmol/L (22-30); Chloride 107 mmol/L (98-107); Estimated CRCL calculation 68 ml/min; Estimated Glomerular Filt Rate > 60; Glucose 92 mg/dL (65-110); Potassium 3.3 mmol/L (3.4-5.0); Sodium 133 mmol/L (137-145)
[2024-09-18] MEDS: ENOXAPARIN 40 MG/0.4 ML SYRINGE SUB-Q (08:20)
--- NOTE | 2024-09-18 13:01 | P.DS_ITS ---
DS: Admitting Diagnosis Discharge Date 09/18/2024 Admitting Diagnosis Acute perforated appendicitis, sepsis, hyponatremia DS: Discharge Diagnosis Discharge Diagnosis (1) Acute appendicitis with rupture: Code(s): K35.32 - Acute appendicitis with perforation, localized peritonitis, and gangrene, without abscess Status: Acute DS: Summary Hospital Course Reason for hospitalization: Acute appendicitis Hospital Course: This is a 64-year-old man who presented to the emergency department 09/15/2024 with complaints of lower abdominal pain. He was found to be tachycardic with an elevated white blood count and fever. CT abdomen and pelvis was performed which showed evidence of likely perforated acute appendicitis. He was admitted and placed on IV Zosyn. On 09/16, continued medical treatment with IV antibiotics versus surgical treatment was discussed with the patient and he wanted to proceed with surgery. He underwent laparoscopic appendectomy and drainage intra-abdominal abscess on 09/16/2024. A IAN drain was placed at the time of surgery and he was then returned to the surgical floor postoperatively. He was kept on clear liquids initially kept on IV Zosyn. On 09/17, his pain was improving and he was passing flatus and having some liquid bowel movements. His diet was advanced as tolerated. The IAN drain was putting out mostly serosanguineous output. On 09/18, his pain was continuing to improve and he was remaining afebrile. He was tolerating a regular diet. He was discharged on 09/18/2024. Status at Discharge Functional status at discharge: independent ambulation Overall status at discharge: patient is progressing back to baseline Time Spent with Patient Time attestation: Total time spent providing and/or coordinating discharge services: Time spent: Less than 30 minutes Exam Const: General: comfortable and no acute distress Orientation/consciousness: patient oriented x3 Resp: Effort & Inspection: normal respiratory effort Auscultation: clear to auscultation bilaterally Cardio: Rate: regular rate Rhythm: regular rhythm Heart sounds: S1 normal heart sound present and S2 normal heart sound present GI: Inspection: non-distended, incision (Intact with glue) and other (IAN with minimal serous output) GI Palp: Yes Soft to palpation and Yes Tenderness to palpation present (GI) (Mild right lower quadrant and incisional) Auscultation: normal bowel sounds DS: Data Data Completed and Pending Pending studies at discharge: Pending at discharge 09/16/24 15:36 Surgical [PTH] Routine Labs on day of discharge: Labs from last 24 hours 09/18/24 06:35 WBC 14.1 H RBC 3.75 L Hgb 12.6 L Hct 35.9 L MCV 95.7 MCH 33.6 MCHC 35.1 RDW 12.3 Plt Count 216 MPV 9.7 Sodium 133 L Potassium 3.3 L Chloride 107 Carbon Dioxide 21 L Anion Gap 5 BUN 19 Creatinine 0.90 Estim Creat Clear Calc 68 Estimated GFR > 60 Glucose 92 Calcium 8.9 Preliminary micro results at discharge 09/15/24 17:33 Blood Culture - Preliminary Blood 09/15/24 17:48 Blood Culture - Preliminary Blood Imaging Radiologist's impression: ITS Impressions Abdomen/Pelvis CT 09/15/24 16:44 IMPRESSION: 1. Ruptured acute appendicitis. 2. Small volume of ascites. 3. Small pericardial effusion. Discharge Plan Discharge Attending physician on discharge: Varinder Jacome Consulting providers: [employer] Payan Discharging Clinician: Varinder Jacome Patient Disposition: Home, Self-Care Activity: other - see discharge instructions Diet: regular Wound Care Instructions: other - see discharge instructions Discharge Instructions: DISCHARGE INSTRUCTION SHEET FOR HERNIA, GALLBLADDER AND APPENDIX SURGERIES DR. JACOME PATIENT TO TAKE HOME 1. May shower in 24 hours, no soaking in bath x 2weeks. 2. Call office for: * Wound increasingly painful or bleeding * Vomiting * Fever of greater than 101 degrees 3. If no bowel movement for three days, take 1 oz. (30 ml) Milk of Magnesia or MiraLax 17g 1 to 2 times daily. 4. No heavy lifting > 10-15 pounds x weeks for hernia repairs and 2 weeks for laparoscopic cholecystectomy or appendectomy. 5. No driving for 3 days or while taking narcotic pain medications. 6. Ice to surgical site for 48 hours (30 min on, then 30 min off). 7. Up walking 10-30 minutes three times per day. 8. Resume previous home medications. 9. Follow-up 10-14 days in office for wound check or as previously scheduled. ([phone]) 10. Oral pain medications prescription to be sent to pharmacy. Take Tylenol 500mg every 6 hours and Ibuprofen 600mg every 6 hours for the first 2 days, then as needed. 11. NUTRITION: Start out by drinking fluids and increase your diet as tolerated. If you experience nausea, try dry toast, crackers, and 7-UP. If nausea or vomiting persists, contact your surgeon?s office. 12. Gallbladders-Low Fat Diet for 2 weeks (send care note of low fat diet) 13. Inguinal Hernias-wear scrotal support for 48 hours 14. Abdominal Hernias-if sent home with abdominal binder, wear for the first 2 weeks (may remove to shower or at night to sleep). 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
[2024-09-18 14:00] VITALS: BP 131/80; PULSE 78; RESP 18; TEMP 36.9; O2SAT 96
[2024-09-18] MEDS: NEOMYCIN/POLYMYXIN/BACITRACIN OINTMENT PACKET 1 PACKET (14:17)
== END 2024-09-18 14:26 | disposition home or self-care (01) | DRG 853 ==
LOC: ANHED 18:10 → ANH3MEDSUR 18:21
PROVIDERS: Emergency Medicine; Registered Nurse; Admitting Provider Surgery; Emergency Provider Physician Assistant; Visit Provider Surgery
PROC: 0DTJ4ZZ Resection of Appendix, Percutaneous Endoscopic Approach (ICD-10-PCS; CPT 44970; principal; 2024-09-16 15:30)
DX: A41.9 Sepsis, unspecified organism (principal); K35.33 Acute appendicitis with perforation, localized peritonitis, and gangrene, with abscess; E87.1 Hypo-osmolality and hyponatremia; Z80.0 Family history of malignant neoplasm of digestive organs
CPT/HCPCS: 36415; 74177; 80048; 80053; 81001; 83605; 83690; 84484; 85025; 85027; 85610; 85730; 86850; 86900; 86901; 87040; 88304; 93005; 96361; 96365; 96375; 99291; A9270; G0378; J1100; J1171; J1650; J1741; J2003; J2250; J2270; J2405; J2543; J2704; J3010; J7030; J7120; Q9967